=== PATIENT | female | born 1950 | race Caucasian/White ===

== ENCOUNTER 2017-08-16 11:01 | Emergency (ER) | payer MEDICARE ==
[~2017-08-16] VITALS: Ht 162.6 cm; Wt 60.0 kg
[2017-08-16] MEDS ORDERED: FUMARATE (11:05)
[2017-08-16] MEDS ORDERED: ATOR10TA69 PO (11:05)
[2017-08-16] MEDS ORDERED: BUPROPION (11:05)
[2017-08-16] MEDS ORDERED: SODIUM CHLORIDE 0.9% 1000ML BAG (SEPSIS BOLUS) IV ONE (11:15)
[2017-08-16 12:11] VITALS: BP 118/76
[2017-08-16] MEDS ORDERED: ACETAMINOPHEN 650MG SUPP ONE (14:39)
[2017-08-16] MEDS ORDERED: LORAZEPAM 2MG/ML CPJ ONE (14:40)
== END 2017-08-16 12:43 | disposition home or self-care (01) ==
LOC: ER 11:01 → CANBEDREQ 22:47
DX: T40.7X1A Poisoning by cannabis (derivatives), accidental (unintentional), initial encounter (principal); R68.2 Dry mouth, unspecified; R42 Dizziness and giddiness; I10 Essential (primary) hypertension; Y92.89 Other specified places as the place of occurrence of the external cause
CPT/HCPCS: 99283; J2060; J7030; A4315